=== PATIENT | male | born 1960 | race Caucasian/White ===

== ENCOUNTER 2016-11-09 18:49 | Emergency (ER) | payer OTHER ==
[~2016-11-09] VITALS: Ht 175.3 cm; Wt 77.1 kg
[2016-11-09 18:52] VITALS: BP_SYST 138
--- NOTE | 2016-11-09 18:57 | NUR ---
AMBULATED TO BED 2
--- NOTE | 2016-11-09 19:15 | NUR ---
Pt presents to ED with c/o coughing x3 months, and recent swelling of bilateral ankle and feet. Pt ambulatory, denies SOB or chestpain, denies N/V/D. Skin intact. Will continue to monitor
--- NOTE | 2016-11-09 19:30 | NUR ---
MD La at bedside examining pt
[2016-11-09 19:45] LABS: ALBUMIN 3.4 g/dL (3.4-4.8); CALCIUM 8.7 mg/dL (8.4-11.0); CREATININE 1.19 mg/dL (0.55-1.30); POTASSIUM 4.3 mmol/L (3.5-5.1); TOTAL PROTEIN, SERUM 6.9 g/dL (6.4-8.3)
[2016-11-09 19:48] LABS: BASOPHILS % (AUTO) 0.4 % (0.0-2.0); EOSINOPHILS # (AUTO) 0.1 K/uL (0.0-0.4); EOSINOPHILS % (AUTO) 0.6 % (0.0-4.0); HEMOGLOBIN 14.5 g/dL (14.0-18.0); LYMPHOCYTES # (AUTO) 1.2 K/uL (1.0-5.5); LYMPHOCYTES % (AUTO) 14.1 % (20.5-51.5); MEAN CORPUSCULAR HEMOGLOBIN 31 pg (27-31); MEAN CORPUSCULAR HGB CONC 33 % (32-36); MEAN CORPUSCULAR VOLUME 94 fL (79.0-98.0); MONOCYTES # (AUTO) 0.6 K/uL (0.0-1.0); MONOCYTES % (AUTO) 6.3 % (1.7-9.3); NEUTROPHILS # (AUTO) 6.8 K/uL (1.8-7.7); NEUTROPHILS % (AUTO) 78.6 % (40.0-70.0); PLATELET COUNT (AUTO) 120 K/uL (130-430); RED CELL DISTRIBUTION WIDTH 14.9 % (9.0-15.0); WHITE BLOOD COUNT (AUTO) 8.8 K/uL (4.8-10.8)
[2016-11-09 19:50] LABS: INR 1.1 (0.80-1.20)
[2016-11-09 19:56] LABS: BILIRUBIN,URINE NEGATIVE (NEGATIVE); BLOOD, URINE NEGATIVE (NEGATIVE); CLARITY/URINE CLEAR (CLEAR); COLOR,URINE YELLOW (YELLOW); GLUCOSE,URINE NEGATIVE (NEGATIVE); KETONES,URINE NEGATIVE (NEGATIVE); LEUKOCYTE ESTERASE ,URINE NEGATIVE (NEGATIVE); NITRITE, URINE NEGATIVE (NEGATIVE); PROTEIN URINE NEGATIVE (NEGATIVE); UROBILINOGEN,URINE 0.2 (0.2-1.0)
--- NOTE | 2016-11-09 21:07 | NUR ---
Pt in bed, no sign of distress noted. Will continue to monitor
--- NOTE | 2016-11-09 21:28 | NUR ---
MD Schmitt at bedside discussing with pt
--- NOTE | 2016-11-09 21:31 | NUR ---
pt denies taking any medication at home, stated he stopped taking metformin months ago
--- NOTE | 2016-11-09 21:45 | NUR ---
Pt was admitted by . Prior to transportation, pt stated he wants to speak to . Pt stated he wants to go home and wanted to leave. at bedside discussing with pt about the risk and consequences involed in leave the hospital against medical advice. Pt and family member stated they understand the risk of leaving against medical advice, and wanted to sign AMA.
--- NOTE | 2016-11-09 21:55 | NUR ---
Patient does not wish to proceed with medical care recommended by . Patient given information related to possible complications, up to and including , which could occur as a result of leaving hospital at this time. Patient verbalizes understanding of risks involved leaving against medical advice. Patient has signed AMA form.
[2016-11-09 22:15] VITALS: BP_SYST 126
[2016-11-09] MEDS ORDERED: CARVEDILOL 3.125 MG TABLET (COREG) PO SCH (22:15)
[2016-11-09] MEDS ORDERED: FUROSEMIDE 20 MG TABLET PO ONE (22:15)
[2016-11-09] MEDS ORDERED: INSULIN REGULAR, HUMAN 100 UNITS/ML, 10 ML VIAL (novoLIN R) SUBCUT PRN (22:15)
[2016-11-09] MEDS ORDERED: DEXTROSE 50% JECT 50 ML DISP.SYRIN IVP PRN (22:15)
[2016-11-09] MEDS ORDERED: BENAZEPRIL HCL 20 MG TABLET (LOTENSIN) PO SCH (22:15)
--- NOTE | 2016-11-09 22:15 | NUR ---
Patient given written and verbal discharge instructions and verbalizes understanding. ER MD Schmitt discussed with patient the results and treatment provided. Given copies of tests performed in ER. Patient in stable condition. ID arm band removed. IV catheter removed intact and dressing applied, no active bleeding. Rx of lasix given. Patient educated on pain management and to follow up with PMD. Pain Scale 0/10 Opportunity for questions provided and answered.
--- NOTE | 2016-11-09 22:15 | NUR ---
Note undone in EDM - 11/09/16 at 2237 by [email or web address] Patient given written and verbal discharge instructions and verbalizes understanding. ER MD Schmitt discussed with patient the results and treatment provided. Patient in stable condition. ID arm band removed. IV catheter removed intact and dressing applied, no active bleeding. Rx of lasix given. Patient educated on pain management and to follow up with PMD. Pain Scale 0/10 Opportunity for questions provided and answered.
[2016-11-09] MEDS ORDERED: ENOXAPARIN SODIUM 40 MG/0.4 ML SYRINGE SUBCUT SCH (23:00)
[2016-11-10 05:56] LABS: BARBITURATE, URINE NEGATIVE (NEG <=200); BENZODIAZEPINE, URINE NEGATIVE (NEG <=150); CANNABINOID, URINE NEGATIVE (NEG <=50); COCAINE, URINE NEGATIVE (NEG <=150); METHAMPHETAMINES SCREEN,URINE NEGATIVE (NEG <=500); OPIATE, URINE NEGATIVE (NEG <=100); PHENCYCLIDINE SCREEN,URINE NEGATIVE (NEG <=25); UR TRICYCLIC ANTIDEPRESSANTS NEGATIVE (NEG <=300); URINE AMPHETAMINE NEGATIVE (NEG <=500); URINE METHADONE NEGATIVE (NEG <=200); URINE OXYCODONE SCREEN NEGATIVE (NEG <=100); URINE PROPOXYPHENE SCREEN NEGATIVE (NEG <=300)
== END 2016-11-09 22:00 | disposition left against medical advice (07) ==
LOC: SED 18:49 → UNDOADMIN 21:33 → STU 21:33 → UNDODISIN 22:00
DX: I50.9 Heart failure, unspecified (principal); I51.7 Cardiomegaly; E11.9 Type 2 diabetes mellitus without complications
CPT/HCPCS: 36415; 71010; 80053; 80307; 81003; 83735-TC; 83880; 85025; 85610-TC; 85730-TC; 93005; 99285

== ENCOUNTER 2016-11-10 16:43 | Inpatient (IN) | payer OTHER ==
[~2016-11-10] VITALS: Ht 175.3 cm; Wt 78.9 kg
[2016-11-10 16:50] VITALS: BP 137/97; PULSE 86; RESP 18; TEMP 97.5; O2SAT 98
--- NOTE | 2016-11-10 16:56 | NUR ---
Patient to ER bed 8 to gown for evaluation. Side rails up. Report given to Anyi HDZ.
--- NOTE | 2016-11-10 16:59 | NUR ---
ER CHARLES Gillespie at bedside for evaluation
--- NOTE | 2016-11-10 17:00 | NUR ---
Patient returns to ER for evaluation and worsening symptoms. Patient was seen in ER yesterday for chest pressure and SOB. Patient refused admission. Today patient returns stating that he feels worse and would liek to be admitted. AAOx4, right eye blind, C/O chest pressure, +1 pitting edema lower extremities, no signs of acute distress.
--- NOTE | 2016-11-10 17:10 | NUR ---
# 20 gauge angiocath placed to right forearm. Use of asceptic technique. Opsite placed over site. Blood return noted. Blood for lab drawn from site. Flushed with 10 cc of normal saline. No evidence of infiltration noted. Patient tolerated well.
--- NOTE | 2016-11-10 17:16 | NUR ---
Radiology at bedside with portable for xray
[2016-11-10 17:19] LABS: BASOPHILS % (AUTO) 0.3 % (0.0-2.0); EOSINOPHILS % (AUTO) 0.4 % (0.0-4.0); HEMATOCRIT 41.9 % (36-54); HEMOGLOBIN 14.4 g/dL (14.0-18.0); LYMPHOCYTES # (AUTO) 0.9 K/uL (1.0-5.5); LYMPHOCYTES % (AUTO) 10.3 % (20.5-51.5); MEAN CORPUSCULAR HEMOGLOBIN 31 pg (27-31); MEAN CORPUSCULAR HGB CONC 34 % (32-36); MEAN CORPUSCULAR VOLUME 91 fL (79.0-98.0); MONOCYTES # (AUTO) 0.4 K/uL (0.0-1.0); MONOCYTES % (AUTO) 4.4 % (1.7-9.3); NEUTROPHILS # (AUTO) 7.4 K/uL (1.8-7.7); NEUTROPHILS % (AUTO) 84.6 % (40.0-70.0); PLATELET COUNT (AUTO) 115 K/uL (130-430); RED BLOOD CELL COUNT(AUTO) 4.58 MIL/uL (4.2-6.2); RED CELL DISTRIBUTION WIDTH 14.8 % (9.0-15.0); WHITE BLOOD COUNT (AUTO) 8.7 K/uL (4.8-10.8)
--- NOTE | 2016-11-10 17:24 | NUR ---
Medication reconciliation completed with information provided by - patient states "no home meds". Any prior medication reconciliation on file was reviewed and corrected.
[2016-11-10 17:33] LABS: CALCIUM 8.8 mg/dL (8.4-11.0); CREATININE 1.14 mg/dL (0.55-1.30); POTASSIUM 4.4 mmol/L (3.5-5.1)
[2016-11-10 17:37] LABS: INR 1.2 (0.80-1.20); PROTHROMBIN TIME 12.7 SECS (9.5-12.5)
[2016-11-10 17:38] LABS: ALBUMIN 3.4 g/dL (3.4-4.8); TOTAL BILIRUBIN 1.5 mg/dL (0.0-1.0); TOTAL PROTEIN, SERUM 6.9 g/dL (6.4-8.3)
--- NOTE | 2016-11-10 18:21 | NUR ---
Patient on gurney, calm, no signs of acute dsitress. Family at bedside.
--- NOTE | 2016-11-10 19:40 | NUR ---
DR. ZULEMA ANDERSON FOR STAT CARDIOLOGY CONSULT AT THE REQUEST OF DR. HARLEY.
--- NOTE | 2016-11-10 19:43 | NUR ---
Snack provided to the patient. Patient calm in bed, no signs of acute dsitress. VS wnl
--- NOTE | 2016-11-10 20:13 | NUR ---
DR. ZULEMA ANDERSON FOR STAT CARDIOLOGY CONSULT AT THE REQUEST OF DR. HARLEY.
--- NOTE | 2016-11-10 20:15 | NUR ---
DR. MCDONOUGH PAGED FOR STAT CARDIOLOGY CONSULT AT THE REQUEST OF DR. HARLEY, DUE TO NO RESPONSE FROM DR. POOLE.
--- NOTE | 2016-11-10 20:27 | NUR ---
Patient will be admitted to care of DR HARLEY. Admitted to ICU unit. Will go to room ICU. Belongings list completed. Summary report printed. Report given to ANDREINA.
--- NOTE | 2016-11-10 20:30 | NUR ---
Received telephone orders from MD [facility].
--- NOTE | 2016-11-10 20:42 | NUR ---
No ICU beds available. Patient is ER ICU hold
[2016-11-10] MEDS ORDERED: HEPARIN 25,000 UNITS/D5W 250ML 250 ML IV PRN (20:45)
[2016-11-10] MEDS ORDERED: ASPIRIN 325 MG TABLET PO ONE (20:45)
[2016-11-10] MEDS ORDERED: FUROSEMIDE 40 MG/4 ML VIAL IVP ONE (20:45)
[2016-11-10] MEDS ORDERED: FUROSEMIDE 40 MG/4 ML VIAL ONE (20:52)
[2016-11-10] MEDS ORDERED: ASPIRIN 325 MG TABLET (ECOTRIN) PO ONE (20:52)
[2016-11-10] MEDS: INSULIN REGULAR, HUMAN 100 UNITS/ML, 10 ML VIAL (novoLIN R) SUBCUT PRN (21:08)
[2016-11-10] MEDS ORDERED: HEPARIN SODIUM,PORCINE 2000 UNITS/0.4 ML BOLUS IVP PRN (21:15)
[2016-11-10] MEDS ORDERED: HEPARIN SODIUM,PORCINE 3000 UNITS/0.6 ML BOLUS IVP PRN (21:15)
[2016-11-10] MEDS ORDERED: HEPARIN SODIUM,PORCINE 5000 UNITS/ML VIAL IV ONE (21:30)
--- NOTE | 2016-11-10 21:37 | NUR ---
Transfer to ICU via [facility] protocol. Licensed nurse present. IV present no signs or symptoms of infiltration.
[2016-11-10 21:40] VITALS: BP 113/72; PULSE 76; RESP 15; TEMP 98.5; O2SAT 99
--- NOTE | 2016-11-10 21:40 | NUR ---
RECEIVED FROM ER DEPT VIA SUDARSHAN A 56 YO MALE WITH DIAGNOSIS OF MYOCARDIAL INFARCTION. AAOX4. PERRLA. HAND BROODMARE FOREMAN GOOD. DENIES CHEST PAIN AT THIS TIME. ON ROOM AIR. DENIES SOB. POX 99%. BREATH SOUNDS CLEAR. BOWEL SOUNDS ACTIVE. PULSES PALPABLE. SKIN WARM AND DRY. COLOR SATISFACTORY. HOB UP TO COMFORT. SIDE RAILS UP X3. CALL LIGHTS WITHIN REACH. SINUS RHYTHM.
[2016-11-10 22:00] VITALS: BP 121/67; PULSE 74; RESP 27; O2SAT 96
--- NOTE | 2016-11-10 22:00 | NUR ---
VOIDED 375CC CLEAR YELLOW URINE VIA URINAL. DAUGHTER AT BEDSIDE VISITING. PT. ANSWERING ADMISSION ASSESSMENT QUESTIONS. HEPARIN DRIP INFUSING AT 1000UNITS/HR FROM ER. PIV SITE SECURELY TAPED.
[2016-11-10 23:00] VITALS: BP 118/74; PULSE 70; RESP 16; O2SAT 95
[2016-11-10] MEDS ORDERED: NITROGLYCERIN 0.4 MG TAB.SUBL SL PRN (23:00)
--- NOTE | 2016-11-10 23:00 | NUR ---
DR HARLEY HERE, SEEN PT. NEW ORDERS GIVEN TO BE IMPLEMENTED. SON AT BEDSIDE VISITING.
[2016-11-11] VITALS (24 sets, daily range): BP systolic 103–135; BP diastolic 57–89; PULSE 59–75; RESP 10–27; TEMP 97.2–98.2; O2SAT 93–99
--- NOTE | 2016-11-11 | NUR ---
AWAKE. SON AT BEDSIDE. VSS. DENIES PAIN. VOIDED 475 CC CLEAR YELLOW URINE VIA URINAL.
--- NOTE | 2016-11-11 02:00 | NUR ---
ASLEEP. NO DISTRESS NOTED. TROPONIN DRAWN AT 0150.
--- NOTE | 2016-11-11 03:10 | NUR ---
DR MCDONOUGH NOTIFIED OF TROPONIN 18.575. ORDERED TO PUT PT ON NPO FOR POS HEART CATH.
--- NOTE | 2016-11-11 04:00 | NUR ---
SOUNDLY ASLEEP. REPOSITIONS SELF WELL. VSS. HOB SEMI-FOWLERS. SON AT BEDSIDE. SR W/BBB. AM LABS DRAWN. HEPARIN AT 1000 UNITS/HR.
[2016-11-11 04:51] LABS: CALCIUM 8.9 mg/dL (8.4-11.0); CREATININE 1.07 mg/dL (0.55-1.30); POTASSIUM 4.1 mmol/L (3.5-5.1)
[2016-11-11 05:00] LABS: ALBUMIN 3.2 g/dL (3.4-4.8); TOTAL BILIRUBIN 1.5 mg/dL (0.0-1.0); TOTAL PROTEIN, SERUM 6.3 g/dL (6.4-8.3)
--- NOTE | 2016-11-11 06:00 | NUR ---
SLEPT INTERMITTENTLY. 0 DISTRESS. REMAINS IN GUARDED CONDITION.
--- NOTE | 2016-11-11 06:30 | NUR ---
ACCU-CHEK 109, NO INSULIN COVERAGE DUE PER SLIDING SCALE. APTT 36.2, HEPARIN 2000 UNITS IVP GIVEN, AND HEPARIN DRIP INCREASED TO 1200 UNITS/HR PER HEPARIN INFUSION ORDERS. APTT IN 6 HRS.
[2016-11-11 06:32] LABS: HEMATOCRIT 41.4 % (36-54); HEMOGLOBIN 13.9 g/dL (14.0-18.0); RED BLOOD CELL COUNT(AUTO) 4.38 MIL/uL (4.2-6.2); WHITE BLOOD COUNT (AUTO) 9.7 K/uL (4.8-10.8)
[2016-11-11 06:33] LABS: LYMPHOCYTES % (AUTO) 14.1 % (20.5-51.5); MEAN CORPUSCULAR HEMOGLOBIN 32 pg (27-31); MEAN CORPUSCULAR HGB CONC 34 % (32-36); MEAN CORPUSCULAR VOLUME 94 fL (79.0-98.0); MONOCYTES % (AUTO) 7.7 % (1.7-9.3); NEUTROPHILS % (AUTO) 77.1 % (40.0-70.0); PLATELET COUNT (AUTO) 110 K/uL (130-430); RED CELL DISTRIBUTION WIDTH 14.6 % (9.0-15.0)
[2016-11-11 06:34] LABS: BASOPHILS # (AUTO) 0.1 K/uL (0.0-0.2); BASOPHILS % (AUTO) 0.7 % (0.0-2.0); EOSINOPHILS % (AUTO) 0.4 % (0.0-4.0); LYMPHOCYTES # (AUTO) 1.4 K/uL (1.0-5.5); MONOCYTES # (AUTO) 0.7 K/uL (0.0-1.0); NEUTROPHILS # (AUTO) 7.5 K/uL (1.8-7.7)
[2016-11-11] MEDS: INSULIN REGULAR, HUMAN 100 UNITS/ML, 10 ML VIAL (novoLIN R) SUBCUT PRN ×3 (06:39→21:06)
--- NOTE | 2016-11-11 08:00 | NUR ---
PATIENT A/OX4. SR ON MONITOR, NO S/S OF ACUTE DISTRESS NOTED AT THIS TIME. V/S STABLE. EYES PERRLA AND TRACKS, BREATHING UNLABORED, CLEAR BREATH SOUNDS AUDIBLE ACROSS LUNG FANG. BOWELS SOUNDS HEARD ON ALL QUADRANTS. NPO AT THIS TIME. IV ON RIGHT FA, #20, INFUSED WITH HEPARIN 1,200 UNITS PER HOUR. PATIENT IS ABLE TO VOID INTO URINAL. MINOR, NONPITTING EDEMA NOTED AT BLE. INSTRUCTED PATIENT TO USE CALL LIGHT, WHICH IS IN PLACE, BED AT LOWEST POSITION, WILL CONTINUE TO MONITOR CLOSELY FOR S/S OF DISTTRESS
[2016-11-11] MEDS ORDERED: METOPROLOL TARTRATE 5 MG/5 ML VIAL IVP SCH (09:00)
[2016-11-11] MEDS ORDERED: PANTOPRAZOLE GRANULES PACKET 40 MG GT SCH (09:00)
[2016-11-11] MEDS ORDERED: LISINOPRIL 5 MG TABLET PO SCH (09:00)
[2016-11-11] MEDS ORDERED: ASPIRIN 81 MG TAB.CHEW PO SCH (09:00)
[2016-11-11] MEDS ORDERED: ATORVASTATIN 20 MG TABLET PO SCH (09:00)
[2016-11-11] MEDS ORDERED: FUROSEMIDE 20 MG TABLET PO SCH (09:00)
--- NOTE | 2016-11-11 09:10 | NUR ---
DR. MCDONOUGH IS CALLED ABOUT PATIENT'S CURRENT STATUS, WELL WHETHER PO MEDS CAN BE GIVEN DESPITE NPO STATUS. DR. MCDONOUGH STATES THE PATIENT IS SAFE TO TAKE THE MEDS DUE TO HIS CURRENT CLINICAL CONDITION. WILL BE CARRIED OUT.
[2016-11-11] MEDS ORDERED: METOPROLOL TARTRATE 25 MG TABLET PO ONE (10:00)
[2016-11-11] MEDS ORDERED: ASPIRIN 325 MG TABLET (ECOTRIN) PO ONE (10:00)
--- NOTE | 2016-11-11 10:25 | NUR ---
DC PLANNING Received call from Victor M in ICU that per pt needs to be transferred, had an SC & needs cardiac cath lab radiology technician angiogram. ICU level of care. Called & spoke nathan Camara in admitting asking for contact information for insurance for list of contracted hospitals. Addendum: 11/11/16 at 1133 by Kallie Marin RN Order to transfer to [facility] for cath @ 3pm. Spoke w pt & dtr Vani @ [facility], aware of plan to transfer to [facility] agreeable w transfer. Called & spoke w Britt @ [facility] cath lab radiology technician, ph [phone], states pt is scheduled for 3 to be there @ 1pm. Per Victor M verified w Dr Franco & pt ok for TELE via [facility] ambulance. Called & spoke w Karissa in admitting @ [facility], ph [phone], states we need to get auth first. Faxed face sheet & pt info as requested. Addendum: 11/11/16 at 1159 by Kallie Marin RN Called & spoke nathan Diez @ [employer], ph [phone], pt not assigned yet need to speak w andrez @ [facility], ph [phone] opt 3. Transferred call to [facility] line & spoke nathan Montes De Oca. Per Tavon she is sending for review as Urgent. Needs to be assigned to nurse first then will contact us for review & auth. She does not have ph# or fax# for Dept, will need to wait for them to contact us. Call ref#[id number]. Addendum: 11/11/16 at 1320 by Kallie Marin RN Have not received call from [facility] yet, updated Victor M in ICU. Received call from Crystal @ [facility] admitting, informed still waiting for auth from [employer]. States pt needs to be @ [facility] by 230, need auth 1st. Updated JASMYN Hughes Director. Addendum: 11/11/16 at 1403 by Kallie Marin RN Received call from Britt @ [employer] [facility], she spoke nathan Franco if do not get auth by 3pm today then will reschedule for tomorrow @ 0730am. States if get auth to call Desiree in cath lab radiology technician, she is leaving for the day. Addendum: 11/11/16 at 1526 by Kallie Marin RN Received call from Desiree @ [employer] [facility] assembly lab[facility], updated no auth yet, states pt rescheduled for 0730 tomorrow morning. Call Restaurant Maintenance Technician during noc shift for room assignment, pt to be there 0530 am. If no room avail pt to go directly to [facility] assembly lab[facility] @ 0700. Updated pt's nurseMarilu in ICU. Called [facility] again, ph [phone], spoke nathan Gaines, ref#[id number], states it's [facility] transferred call to [facility] BIBI Gaines states handles auth/certifications. Call was transferred to Joy lara states she if from [employer], ph [phone], states assigned person is She ph [phone] fax [phone]. Spoke nathan Nowak states she is from [facility], she is not a nurse. Informed of need for auth for transfer. States her import customer service manager is away from desk she will ask her for assigned nurse & have assigned nurse call me. Addendum: 11/11/16 at 1657 by Kallie Marin RN Received call from Flavia Garcia @ [facility], ph [phone], she is assigned for inpt. Informed need auth for transfer for cardiac cath lab radiology technician. [facility] will look into who needs to give auth will call back, faxed pt info requested to her. Received call back states that spoke nathan PENDLETON Specialist @ [facility], ph [phone], [place] needs to give auth. Called & spoke nathan Rosenberg, transferred call transferred call to Ariana PENDLETON inpt, who then transferred call to Lissa barnes , ph [phone]. Spoke nathan Alcaraz, [facility] is contracted for cardio cath lab radiology technician. Informed has angiogram scheduled & [facility] tomorrow 07 pending auth. [facility] will call me back will see if needs to go to [facility] or can get auth for [facility]. JASMYN Hughes director updated. Addendum: 11/11/16 at 1738 by Kallie Marin RN Received call back from Lissa @ [facility], discussed w medical physics professor need to try [facility]. Faxed pt info requested to Lissa, fax [phone]. States not to cancel [facility] if do not get bed or [facility] does not accept then pt will give auth for [facility]. [facility] is contracted ambulance. Gave Lissa direct ph # to ICU & ph# for [facility] admitting to give auth. Updated Clyde, pt's nurse. Informed pt & @ bedside, agreeable w [facility] or [facility]. Lissa @ [facility] grp: ph [phone] [facility] Admitting/Restaurant Maintenance Technician: [phone] [facility] ambulance: [phone]
[2016-11-11] MEDS ORDERED: ENOXAPARIN SODIUM 80 MG/0.8 ML SYRINGE SUBCUT ONE (10:45)
--- NOTE | 2016-11-11 12:05 | NUR ---
PATIENT IS AT REST, SB-SR ON MONITOR, NO SIGNS OF DISTRESS NOTED. WILL CONTINUE TO MONITOR.
--- NOTE | 2016-11-11 14:21 | NUR ---
PATIENT IS AT REST, SB-SR ON MONITOR, NO SIGNS OF DISTRESS NOTED. WILL CONTINUE TO MONITOR. FAMILY AT BEDSIDE, STATUS OF PENDING TRANSFER UPDATED.
--- NOTE | 2016-11-11 15:22 | NUR ---
PROCEDURE. RECEIVED A CALL FROM [facility], PT RE-SCHEDULED TO GO FOR ANGIOGRAM TOMORROW AT 0730 AM UNDER THE SERVICE OF DR AMAYA.
--- NOTE | 2016-11-11 16:40 | NUR ---
Discharge Planning Arranged ALS with lodge officer (no RN) lunchroom monitor ambulance with [facility] [phone], will call. Placed updated packet with radiology CD at nurses' station in ICU.
--- NOTE | 2016-11-11 18:40 | NUR ---
COLD MILL OPERATOR. CALL RECEIVED FROM CJ OF [facility], PHONE NUMBER FOR ANY QUESTIONS [phone], AUTHORIZATION NUMBER GIVEN [id number], STATED THAT SHE HAD GIVEN THE AUTHORIZATION TO CELIA OF [facility] ADMITTING OFFICE.
--- NOTE | 2016-11-11 20:00 | NUR ---
AAOX4. IN NO APPARENT DISTRESS. VSS. DENIES PAIN. ON ROOM AIR. FAMILY AT BEDSIDE VISITING.
[2016-11-11] MEDS ORDERED: METOPROLOL TARTRATE 25 MG TABLET PO SCH (21:00)
[2016-11-11] MEDS ORDERED: ENOXAPARIN SODIUM 80 MG/0.8 ML SYRINGE SUBCUT SCH (21:00)
--- NOTE | 2016-11-11 21:00 | NUR ---
ACCU-CHEK 139, NO INSULIN COVERAGE DUE. MANY QUESTIONS ASKED BY , QUESTIONS ANSWERED. EDUCATION GIVEN ON MEDICATIONS. THANKFUL.
[2016-11-12] VITALS (9 sets, daily range): BP systolic 109–136; BP diastolic 65–85; PULSE 59–69; RESP 12–26; TEMP 97.1–98.6; O2SAT 94–99
--- NOTE | 2016-11-12 | NUR ---
SOUNDLY ASLEEP. 0 DISTRESS. TURNS SELF WELL. LOOKS COMFORTABLE.
--- NOTE | 2016-11-12 03:00 | NUR ---
VOIDED 400CC CONCENTRATED SAM URINE VIA URINAL.
--- NOTE | 2016-11-12 04:00 | NUR ---
SOUNDLY ASLEEP. NO DISTRESS NOTED. VSS. SR W/ BBB, OCC PVC'S & PAC'S.
--- NOTE | 2016-11-12 05:40 | NUR ---
[facility] Spoke w Henrietta @ [facility], states pt admission time for heart cath is set for 0830.
--- NOTE | 2016-11-12 05:44 | NUR ---
Discharge Planning Spoke nathan Snider [facility] and arranged transportation for [phone].
--- NOTE | 2016-11-12 06:30 | NUR ---
SLEPT WELL MOST OF NIGHT. DENIES PAIN, DISTRESS, SOB. ACCU-CHEK 130, NO INSULIN DUE. REMAINS IN GUARDED CONDITION.
[2016-11-12] MEDS: INSULIN REGULAR, HUMAN 100 UNITS/ML, 10 ML VIAL (novoLIN R) SUBCUT PRN (06:58)
--- NOTE | 2016-11-12 07:30 | NUR ---
AM ROUNDS RECEIVED PT UP IN BED. AWAKE, ALERT, ORIENTED X4. BREATHING IS EVEN AND EFFORTLESS ON RA- 99%. LUNGS ARE CTA. NON PRODUCTIVE COUGH NOTED. S1, S2- NSR ON MONITOR. DENIES CP AT THIS TIME. VSS. FULL ASSESSMENT COMPLETED. POC DISCUSSED. PT VERBALIZED UNDERSTANDING. PT IS AGREEABLE TO TRANSFER TO [facility] FOR ANGIOGRAM. CONSENT SIGNED. RD OF CALL LIGHT NOTED. ENCOURAGED PT TO CALL ME WITH ANY NEEDS.
--- NOTE | 2016-11-12 08:22 | NUR ---
REPORT CALLED [facility] FOR TRANSFER TO [place]. SPOKE WITH ANDREINA LIVINGSTON. REPORT GIVEN- INCLUDING LABS. ALL QUESTIONS ANSWERED. CALL BACK NUMBER PROVIDED FOR FURTHER QUESTIONS.
--- NOTE | 2016-11-12 08:35 | NUR ---
PT TRANSFERRED Report given to YARA at [facility]. Transfer packet with Transfer Orders and Medication Reconciliation form given to EMT with report. Exitcare provided. [facility] ID band removed, replaced with ID band with pt's name and . IV catheter removed, intact and dressing applied, no active bleeding. All belongings sent with patient. Patient left floor via gurney escorted by EMT in no distress.
[2016-11-12] MEDS ORDERED: ASPIRIN 325 MG TABLET (ECOTRIN) PO SCH (09:00)
== END 2016-11-12 08:35 | disposition short-term general hospital (02) | DRG 280 ==
LOC: SED 16:43 → SIC 20:28
DX: I21.3 ST elevation (STEMI) myocardial infarction of unspecified site (principal); I50.21 Acute systolic (congestive) heart failure; I11.0 Hypertensive heart disease with heart failure; I25.5 Ischemic cardiomyopathy; E11.9 Type 2 diabetes mellitus without complications; R55 Syncope and collapse; F17.290 Nicotine dependence, other tobacco product, uncomplicated; Z82.49 Family history of ischemic heart disease and other diseases of the circulatory system
CPT/HCPCS: 36415; 80053; 80061; 82962; 83036; 83880; 84484; 85025; 85610-TC; 85730-TC; 87081; 93005; 93306; 96374; 96375; 99285; J1644; J1650; J1815; J1940; J3490